=== PATIENT | male | born 1990 | race Caucasian/White ===

== ENCOUNTER → 2017-12-14 11:30 | Outpatient (CLI) | payer OTHER, SELFPAY ==
[2017-12-14 14:04] LABS: Absolute Lymphocyte Count 2.05 X10^3/ul (0.83-4.51); Absolute Neutrophil Count 2.7 X10^3/uL (2.0-7.7); Basophil# 0.06 X10^3/uL; Basophil% 1.1 % (0-1); Eosinophil# 0.29 X10^3/uL; Eosinophils% 5.1 % (0-5); Hematocrit 47.9 % (40-54); Hemoglobin 16.5 g/dl (13.0-16.5); Lymphocyte # 2.05 X10^3/ul (4.0); Mean Corp Hgb Conc 34.4 g/gl (32-36); Mean Corpuscular Volume 87.1 fL (80-94); Monocyte# 0.55 X10^3/uL; Monocyte% 9.7 % (0-10); Neutrophil # 2.73 X10^3/uL (2.7-7.7); Neutrophil % 47.9 % (47-70); POSITIVE COUNT NO; POSITIVE DIFFERENTIAL NO; POSITIVE MORPHOLOGY NO; Platelet Count 288 K/mm3 (150-450); RBC Distribution Width CV 12.4 % (11.6-14.6); RBC Distribution Width SD 39.9 fl (35.1-43.9); White Blood Count 5.7 K/mm3 (4.4-11.0)
[2017-12-14 14:05] LABS: Erythrocyte Sedimentation Rate 2 mm/hr (0-15)
[2017-12-14 14:15] LABS: ALB/GLOB Ratio 1.3 RATIO (0.9-2.4); AST(SGOT) 34 U/L (15-37); Alanine Aminotransfer ALT/SGPT 115 U/L (16-61); Albumin, Serum 4.1 g/dL (3.2-5.0); Alkaline Phosphatase 99 U/L (45-117); Anion Gap 10 (5-15); BUN 12 mg/dL (7-18); BUN/Creat Ratio 11.4 RATIO (10-20); CRP < 2.90 mg/L (0.0-3.0); Calcium,Total 8.8 mg/dL (8.5-10.1); Chloride 103 mmol/L (98-107); Creatinine, Serum 1.05 mg/dL (0.70-1.30); EST Glomerular Filtration Rate 90 mL/min (>60); Est Glom Filt Rate - Afr Amer 109 mL/min (>60); Globulin 3.2 g/dL (2.2-4.2); Glucose 75 mg/dL (74-106); Potassium 3.7 mmol/L (3.5-5.1); Protein, Total 7.3 g/dL (6.4-8.2); Sodium Level 141 mmol/L (136-145)
== END ==
PROVIDERS: Family Provider Family Medicine; PCP Family Medicine; Visit Provider Internal Medicine Rheumatology
DX: M06.4 Inflammatory polyarthropathy (principal); M51.36 Other intervertebral disc degeneration, lumbar region
CPT/HCPCS: 36415; 80053; 85025; 85652; 86140

== ENCOUNTER → 2025-01-18 | Outpatient (CLI) | payer OTHER, SELFPAY ==
--- NOTE | 2025-01-18 13:08 | RAD_ITS ---
EXAM: XR Lumbosacral Spine, 2 or 3 Views CLINICAL INDICATION: RADICULOPATHY, LUMBAR REGION TECHNIQUE: Frontal and lateral views of the lumbar spine and sacrum. COMPARISON: No relevant prior studies available. FINDINGS: VERTEBRAE: Unremarkable. No acute fracture. Normal alignment. SACRUM/COCCYX: Unremarkable as visualized. No acute fracture. DISC SPACES: No acute findings. No significant narrowing. SOFT TISSUES: Unremarkable. RAD/Lumbar Spine 2 or 3 Views IMPRESSION: No acute fracture. Reading Location: [facility]
== END | disposition home or self-care (01) ==
LOC: RAD 13:04
PROVIDERS: PCP Family Medicine; Referring Provider Anesthesiology Pain Medicine; Visit Provider Anesthesiology Pain Medicine
DX: M54.16 Radiculopathy, lumbar region (principal)
CPT/HCPCS: 72100

== ENCOUNTER → 2025-02-09 | Outpatient (CLI) | payer OTHER, SELFPAY ==
--- NOTE | 2025-02-09 07:36 | MRI_ITS ---
PROCEDURE: SPINE LUMBAR (ROUTINE) 02/09/2025 REASON FOR EXAM: LUMBAR RADICULOPATHY TECHNIQUE: Multiplanar and multisequence images were obtained without IV contrast administration. COMPARISON: 01/23/2014 FINDINGS: No fracture or malalignment. The conus is seen at L1-2. Cauda equina appears within limits. L1-2: Disc signal appears within limits without central or foraminal narrowing. L2-3: Disc signal appears within limits without central or foraminal narrowing. L3-4: Disc signal appears within limits without central or foraminal narrowing. L4-5: Disc signal appears within limits without central or foraminal narrowing. L5-S1: Disc desiccation and mild loss of disc height. Modic type 3 mild sclerotic change inferior endplate of L5 suggested. Previously seen disc herniation now appears as very mild broad-based disc bulge without significant appearing central canal narrowing. May be in contact with the traversing right S1 nerve for example axial 6 and sagittal 10. Mild bilateral foraminal narrowing. Question possible interval L5 right hemilaminectomy Limited images of the retroperitoneum appear within limits. MRI/Spine Lumbar (Routine) IMPRESSION: L5-S1 spondylosis/discogenic change as described in detail above. Reading Location: [id number]
== END | disposition home or self-care (01) ==
LOC: MRI 07:26
PROVIDERS: PCP Family Medicine; Referring Provider Anesthesiology Pain Medicine; Visit Provider Anesthesiology Pain Medicine
DX: M54.16 Radiculopathy, lumbar region (principal)
CPT/HCPCS: 72148

== ENCOUNTER 2025-04-20 18:00 | Outpatient (RCR) | payer OTHER, SELFPAY ==
--- NOTE | 2025-03-24 15:28 | HP.PTEVAL_ITS ---
Patient's Visit Information Visit Information Visit Information: FRED ELIAS is a 34 year old M referred to Physical Therapy by ELDON Scott with a diagnosis of Lumbar radiculopathy. Date of Evaluation: 03/24/25 Physical Therapist: Tera Sandoval, DPT, OCS, CSCS Visit Plan Frequency: Every Other Week Duration: 2 Months Plan: every other week(pt not want more frequent) x 2 months to mid May as needed for:\IE HEP: PPU 10x 8x/day and sitting posture with towel and avoid FW bending. Next session: check flexion, ext and Slump and progress to flexion if ablee and start mat based strength. then WB strngth/funcitonal strength after that. PA mobs and more ext ROM/directional checks as needed. Subjective Subjective: LBP since November butt skidding down 4 steps . Dolphin pain at the time adn since. Most pain is in R leg buttock to calf, back rarely hurts. 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 Worse while sitting and first standing. l leg is fine. Been to chiro practor which may or may not help. Sees Basali and 2 injections which slightly helped. Muscle relaxers help him sleep as he struggle swith thaat due to pain. Stretching at home PPU, HS stretch. Basic Activities: Basic ADLs are OK, hurts to put socks on in am. Hobbies: Enjoys dirt bike riding and cannot lately. Wants to KB workouts. 70% bettere overall. Pain R buttock leg: Pain Intensity (Out of 10): 3 Pain Intensity Range: 0 and 7 Comment: 3/10 now, 7 a month ago. Objective Objective: Walks into PT I, transfers I chair and bed. Posture is flat lordosis, no tenderness in paraspinals but PT lower lumbar reproduces symtpoms. + R SLR and slump. Lumbar AROM flexion unable due to pain, ext max limited due to R LBP, SB are OK. reflexes 2/3 patella and achilles. Sensation WNL to gross light touch B LE. no myotomal abnormalites in LE strngth but 3+ hipabd and instability in spine with shear forces and seated hip testing. Balance/Special Test Scores Oswestry Low Back Score: 13 Goals Goal 1:: R slump without pain Goal Time Frame: 4-6 Weeks Goal 2:: Pain in R LEG 90% improved and 1/10 at worst Goal Time Frame: 6-8 Weeks Goal 3:: ROM Lumbar in standing without pain Goal Time Frame: 6-8 Weeks Goal 4:: Sleep without waking due to pain or interruption Goal Time Frame: 4-6 Weeks Rehabilitation Potential Physical Therapy Diagnosis: Limited ROM lumbar and effecting mobility adn movement Rehabilitation Potential: Good Anticipated Interventions Patient/Client Instruction: Educate patient on: Condition and Plan of Care For the Purpose of:: To decrease pain, To increase ROM, To improve muscle performance and motor function, To increase tolerance to activity/condition/position and To improve ability of physical actions for home/community/work/leisure Therapeutic Exercise to Include: Strength training, Body mechanics, Passive ROM, Active ROM, Dynamic Lumbar Stabilization and Haider Exercises For the Purpose of:: To decrease pain, To increase ROM, To improve muscle performance and motor function, To improve ability of physical actions for home/community/work/leisure and To improve gait and locomotor functions Manual Therapy Techniques to Include: Mobilization and Soft tissue mobilization For the Purpose of:: To increase ROM and To improve nutrient delivery to tissue Text: Thank you for the opportunity to evaluate your patient. For Medicare and Medicare HMO plans, please review the plan of care and approve it. It will need to be FAXED BACK to us at [phone] for Medicare purposes. For Medicare only, by signing this I certify the plan of care. Please let me know if there are questions or concerns regarding this plan of care. Physician Signature: Date:
--- NOTE | 2025-06-23 08:38 | HP.PT.NRP ---
Patient Information Patient Information: FRED ELIAS was seen in my office for initial evaluation on 03/24/25. The following Plan of Care was established for this patient: POC Established Initial Frequency: Every Other Week Initial Duration: 2 Months Anticipated Interventions Patient/Client Instruction: Educate patient on: Condition and Plan of Care For the Purpose of:: To decrease pain, To increase ROM, To improve muscle performance and motor function, To increase tolerance to activity/condition/position and To improve ability of physical actions for home/community/work/leisure Therapeutic Exercise to Include: Strength training, Body mechanics, Passive ROM, Active ROM, Dynamic Lumbar Stabilization and Haider Exercises For the Purpose of:: To decrease pain, To increase ROM, To improve muscle performance and motor function, To improve ability of physical actions for home/community/work/leisure and To improve gait and locomotor functions Manual Therapy Techniques to Include: Mobilization and Soft tissue mobilization For the Purpose of:: To increase ROM and To improve nutrient delivery to tissue Last Seen Last Seen: This patient was last seen in our office 04/20/25. Pertinent comments regarding their Physical therapy will appear below: Pt seen 2 visits of POC and was 85% better. He was to f/u two weeks later but did not. At this point, it has been over two months and I will disconitnue due to nonattendance. At this point I will be discontinuing this patient from physical therapy. I would be happy to see this patient again in the future if found appropriate by the physician. Thank you! Tera Sandoval, DPT, OCS, CSCS Balance/Gait/Functional tests Balance/Special Test Scores Oswestry Low Back Score: 13
== END 2025-04-20 19:00 | disposition home or self-care (01) ==
LOC: PT 18:00
PROVIDERS: PCP Family Medicine; Referring Provider Student in an Organized Health Care Education/Training Program; Visit Provider Student in an Organized Health Care Education/Training Program
DX: M54.16 Radiculopathy, lumbar region (principal)
CPT/HCPCS: 97110; 97161